=== PATIENT | female | born 1945 | race Asian ===

== ENCOUNTER 2025-05-01 21:25 | Emergency (ER) | payer OTHER ==
[~2025-05-01] VITALS: Ht 149.9 cm; Wt 73.4 kg
[2025-05-01] MEDS: METOPROLOL TARTRATE 25 MG TAB PO ONE (22:15)
--- NOTE | 2025-05-01 22:33 | ED.PDOC ---
HPI Comments 79 year old female with PMHx of HTN and DM presents to the ED with cc of elevated blood pressure and dizziness onset today. Pt reports that 3 weeks ago they were seen at [facility] ER for a UTI and received labs and imaging. Pt is concenred that UTI triggered elevated blood pressure. Pt also states they were recently seen at urgent care for dizziness and high blood pressure reading of 166, pt was given lisonpril 10mg to which she had an adverse reaction causing her to cough and elevate her blood pressure further. Pt was recently seen by PCP earlier this week who changed her amlopdipine RX to 2.5mg, after which she began feeling current episode of elevated blood pressure. Pt reports that last night they monitored their blood pressure as it gladys from 152 to 166, raising concern and triggering her to come to the ED for further medical evaluation.Pt denies associated symptoms of headache, D/V/N at this time. No other associated symptoms, modifiers, recent injuries or sick contacts present at this time. Chief Complaint: High Blood Pressure Time Seen by MD: 22:30 Reviewed Notes: Nurses Notes, Medications, Allergies Allergies: Coded Allergies: Atorvastatin (Verified Allergy, Unknown, 05/01/25) Lisinopril (Verified Allergy, Unknown, 05/01/25) Home Meds Active Scripts Metoprolol Succinate (Metoprolol Succinate Er) 25 Mg Tab, 1 TAB PO DAILY, #90 TAB 3 Refills Prov:ALEXANDRU LANGLEY MD 05/02/25 Information Source: Patient Mode of Arrival: Ambulatory Severity: Moderate Timing: Hours Duration: Since onset Prehospital treatment: None Quality: Pressure Cardiac Risk Factors: HTN, Diabetes PE Risk Factors: None History of: None Modifying Factors: Nothing Past Medical History PAST MEDICAL HISTORY: HTN, Denies Surgical History: Denies all surgeries [employer] History: No Pertinent [employer] History Constitutional: denies: chills, diaphoresis, fatigue, fever, malaise, sweats, weakness, others EENTM: denies: blurred vision, double vision, ear bleeding, ear discharge, ear drainage, ear pain, ear ringing, eye pain, eye redness, hearing loss, mouth pain, mouth swelling, nasal discharge, nose bleeding, nose congestion, nose pain, photophobia, tearing, throat pain, throat swelling, voice changes, others Respiratory: denies: cough, hemoptysis, orthopnea, SOB at rest, shortness of breath, SOB with excertion, stridor, wheezing, others Cardiovascular: denies: chest pain, dizzy spells, diaphoresis, Dyspnea on exertion, edema, irregular heart beat, left arm pain, lightheadedness, palpitations, PND, syncope, others Gastrointestinal: denies: abdomen distended, abdominal pain, blood streaked bowels, constipated, diarrhea, dysphagia, difficulty swallowing, hematemesis, melena, nausea, poor appetite, poor fluid intake, rectal bleeding, rectal pain, vomiting, others Genitourinary: denies: abnormal vagina bleeding, burning, dyspareunia, dysuria, flank pain, frequency, hematuria, incontinence, pain, , vagina discharge, urgency, others Neurological: reports: dizziness; denies: fainting, headache, left sided numbness, left sided weakness, numbness, paresthesia, pre-existing deficit, right sided numbness, right sided weakness, seizure, speech problems, tingling, tremors, weakness, others Musculoskeletal: denies: back pain, gout, joint pain, joint swelling, muscle pain, muscle stiffness, neck pain, others Integumetry: denies: bruises, change in color, change in hair/nails, dryness, laceration, lesions, lumps, rash, wounds, others Allergic/Immunocompromised: denies: Difficulty Healing, Frequent Infections, Hives, Itching, others Hematologic/Lymphatic: denies: anemia, blood clots, easy bleeding, easy bruising, swollen glands, others Endocrine: denies: excessive hunger, excessive sweating, excessive thirst, excessive urination, flushing, intolerance to cold, intolerance to heat, unexplained weight gain, unexplained weight loss, others Psychiatric: denies: anxiety, bipolar disorder, depression, hopeless, panic disorder, schizophrenia, sleepless, suicidal, others All Other Systems: Reviewed and Negative Physical Exam General Appearance: No Apparent Distress, Normal HEENT: Normal ENT Inspection, Pharynx Normal, TMs Normal Neck: Full Range of Motion, Non-Tender, Normal, Normal Inspection Respiratory: Chest Non-Tender, Lungs Clear, No Accessory Muscle Use, No Respiratory Distress, Normal Breath Sounds Cardiovascular: No Edema, No JVD, No Murmur, No Gallop, Normal Peripheral Pulses, Regular Rate/Rhythm Breast Exam: Deferred Gastrointestinal: No Organomegaly, Non Tender, No Pulsatile Mass, Normal Bowel Sounds, Soft Genitalia: Deferred Pelvic: Deferred Rectal: Deferred Extremities: No calf tenderness, Normal capillary refill, Normal inspection, Normal range of motion, Non-tender, No pedal edema Musculoskeletal : Apperance: Normal Neurologic: Alert, casting director II-XII nml as Tested, No Motor Deficits, Normal Affect, Normal Mood, No Sensory Deficits Cerebellar Function: Normal Reflexes: Normal Skin: Dry, Normal Color, Warm Lymphatic: No Adenopathy Was a procedure done? Was a procedure done?: No CP Differential Dx Differential Diagnosis: A-fib, A-Flutter, Angina, Heart Failure, MAT, AR, PVC's, V-Fib, V-Tach, Other X-Ray, Labs, Meds, VS Vital Signs Date Time Temp Pulse Resp B/P (MAP) Pulse Ox O2 Delivery O2 Flow Rate FiO2 05/02/25 01:25 98.1 93 16 157/100 (119) 95 98.1 05/02/25 00:15 79 153/100 05/01/25 23:15 16 05/01/25 23:15 98.1 93 16 157/100 (119) 95 98.1 05/01/25 22:15 93 157/100 05/01/25 21:35 98.2 110 20 174/102 97 98.2 Lab Test 05/01/25 22:25 Range/Units White Blood Count 7.3 4.4-10.8 10^3/uL Red Blood Count 4.43 4.0-5.20 10^6/uL Hemoglobin 13.9 12.2-16.2 g/dL Hematocrit 41.3 36.0-46.0 % Mean Corpuscular Volume 93.3 80.0-100.0 fL Mean Corpuscular Hemoglobin 31.5 28.0-32.0 pg Mean Corpuscular Hemoglobin Concent 33.7 32.0-36.0 g/dL Red Cell Distribution Width 12.8 11.8-14.3 % Platelet Count 201 140-450 10^3/uL Mean Platelet Volume 9.4 6.9-10.8 fL Neutrophils (%) (Auto) 68.3 37.0-80.0 % Lymphocytes (%) (Auto) 21.5 10.0-50.0 % Monocytes (%) (Auto) 6.3 0.0-12.0 % Eosinophils (%) (Auto) 3.3 0.0-7.0 % Basophils (%) (Auto) 0.6 0.0-2.0 % Neutrophils # (Auto) 5.0 1.6-8.6 10 ^3/uL Lymphocytes # (Auto) 1.6 0.4-5.4 10 ^3/uL Monocytes # (Auto) 0.5 0-1.3 10 ^3/uL Eosinophils # (Auto) 0.2 0-0.8 10 ^3/uL Basophils # (Auto) 0 0-0.2 10 ^3/uL Nucleated Red Blood Cells 0.1 % Sodium Level 140 136-145 mmol/L Potassium Level 4.1 3.5-5.1 mmol/L Chloride Level 102 98-107 mmol/L Carbon Dioxide Level 28 20-31 mmol/L Anion Gap 10 5-15 Blood Urea Nitrogen 11 9-23 mg/dL Creatinine 1.06 H 0.550-1.02 mg/dL Glomerular Filtration Rate Calc 54 >90 mL/min BUN/Creatinine Ratio 10.4 10.0-20.0 Serum Glucose 144 H 74-106 mg/dL Calcium Level 9.8 8.7-10.4 mg/dL Troponin I High Sensitivity 4 </=34 ng/L Current Medications Medications (Trade) Dose Ordered Sig/Elias Route Start Time Stop Time Status Last Admin Metoprolol Tartrate (Lopressor Tablet) 25 mg ONCE ONCE PO 05/01/25 22:15 05/01/25 22:16 DC 05/01/25 22:15 Time of 1ST Reevaluation: 23:00 Reevaluation 1ST: Unchanged Patient Education/Counseling: Diagnosis, Treatment, Need For Follow Up Family Education/Counseling: No Family Present SEPSIS Sepsis Screen Date sepsis recognized/suspect: May 01, 2025 Time Sepsis recognized/suspect: 2134 Recent Procedure: No On Antibiotic Therapy: No Respiratory Rate >20: No Heart Rate >90: Yes Temp<36 C (96.8 F) or >38.3 C: No SBP <90 or MAP <65 mmHG: No New Acute Mental Status Change: No Is the patient on CPAP, BIPAP,: No Physician Orders Electrocardigram (05/01/25 22:13) Vital Signs Date Time Temp Pulse Resp B/P (MAP) Pulse Ox O2 Delivery O2 Flow Rate FiO2 05/02/25 01:25 98.1 93 16 157/100 (119) 95 98.1 05/02/25 00:15 79 153/100 05/01/25 23:15 16 05/01/25 23:15 98.1 93 16 157/100 (119) 95 98.1 05/01/25 22:15 93 157/100 05/01/25 21:35 98.2 110 20 174/102 97 98.2 Laboratory Tests Test 05/01/25 22:25 White Blood Count 7.3 10^3/uL (4.4-10.8) Departure 1 Departure Time of Disposition: 01:00 Impression: Primary Impression: Hypertension Additional Impression: Renal insufficiency, mild Disposition: 01 HOME / SELF CARE / HOMELESS Condition: Stable e-Prescriptions Metoprolol Succinate (Metoprolol Succinate Er) 25 Mg Tab 1 TAB PO DAILY, #90 TAB 3 Refills Prov: ALEXANDRU LANGLEY MD 05/02/25 Discharged With: Self Critical Care Note Critical Care Time?: No Stability Stability form required: No Heart Score Heart Score: Heart Score Response (Comments) Value History Slightly Suspicious 0 EKG Normal 0 Age >65 2 Risk Factors 1 or 2 risk factors 1 Troponin Normal limit 0 Total 3 I personally scribed for ALEXANDRU LANGLEY MD ([email or web address]) on 05/01/25 at 22:33. Electronically submitted by Varsha Crespo ([email or web address]). I personally scribed for ALEXANDRU LANGLEY MD ([email or web address]) on 05/02/25 at 01:06. Electronically submitted by Varsha Crespo ([email or web address]). ALEXANDRU LANGLEY MD May 01, 2025 22:33
[2025-05-01 22:40] LABS: Hematocrit 41.3 % (36.0-46.0); Hemoglobin 13.9 g/dL (12.2-16.2); Mean Corpuscular Hemoglobin 31.5 pg (28.0-32.0); Mean Corpuscular Volume 93.3 fL (80.0-100.0); Nucleated Red Blood Cells % 0.1 %
[2025-05-01 22:45] LABS: Chloride 102 mmol/L (98-107); Potassium 4.1 mmol/L (3.5-5.1); Sodium 140 mmol/L (136-145)
[2025-05-01 22:46] LABS: Anion Gap 10 (5-15); Carbon Dioxide 28 mmol/L (20-31)
[2025-05-01 22:47] LABS: Calcium 9.8 mg/dL (8.7-10.4)
[2025-05-01 22:52] LABS: BUN/Creatinine Ratio 10.4 (10.0-20.0); Blood Urea Nitrogen 11 mg/dL (9-23); Glucose 144 mg/dL (74-106)
[2025-05-02] MEDS ORDERED: METO25TA93 PO (00:29)
[2025-05-02 01:25] VITALS: BP 157/100; PULSE 93; RESP 16; TEMP 98.1; O2SAT 95
[2025-05-08] MEDS ORDERED: AML5T PO (13:21)
[2025-05-08] MEDS ORDERED: PIO30T PO (13:22)
[2025-05-08] MEDS ORDERED: ROSU5TAB5 PO (13:23)
== END 2025-05-02 01:36 | disposition home or self-care (01) ==
LOC: ER 21:25
DX: I10 Essential (primary) hypertension (principal); N28.9 Disorder of kidney and ureter, unspecified; E11.29 Type 2 diabetes mellitus with other diabetic kidney complication; N39.0 Urinary tract infection, site not specified; Z79.899 Other long term (current) drug therapy; Z87.440 Personal history of urinary (tract) infections; Z88.8 Allergy status to other drugs, medicaments and biological substances
CPT/HCPCS: 36415; 80048; 84484; 85025